=== PATIENT | female | born 2000 ===

== ENCOUNTER 2021-06-17 11:12 | Emergency (ER) | payer SELFPAY ==
[2021-06-17 11:29] VITALS: BP 114/70
--- NOTE | 2021-06-17 12:35 | Emergency Department Report ---
Abscess Boil HPI - HPI Chief Complaint: Earache Stated Complaint: EAR PAIN Time Seen by Provider: 06/17/21 12:16 Duration: 5 Days Location: Other (Right ear lobe) History: Yes Pain, No Fever, No Purulent Drainage, No Numbness, No Foreign Body, No Previous History, No Insect Bite HPI: 20-year-old female presents to the ER today with complaints of a tender swollen area to her right posterior elbow. She states that started about 5 days ago and has progressively been getting worse. She states that she is unsure of what may have caused it. She denies any drainage from the area. She states that she has never had abscesses before in the past. She denies any fever or chills. She denies any significant past medical history. She reports no additional symptoms at this time Home Medications: Previous Rx's Medication Instructions Recorded Last Taken Type Ibuprofen [Motrin] 600 mg PO Q8H PRN #30 tablet 06/17/21 Unknown Rx Sulfamethoxazole/Trimethoprim 1 each PO BID #14 tablet 06/17/21 Unknown Rx [Bactrim DS TAB] traMADoL [Ultram] 50 mg PO Q6HR PRN #12 tablet 06/17/21 Unknown Rx Allergies/Adverse Reactions: Allergies Allergy/AdvReac Type Severity Reaction Status Date / Time No Known Allergies Allergy Verified 06/17/21 11:26 ED Review of Systems ROS: Stated complaint: EAR PAIN Other details as noted in HPI Comment: All other systems reviewed and negative Skin: other (Swollen, tender area posterior right elbow) ED Past Medical Hx - Past Medical History Previous Medical History?: No - Surgical History Past Surgical History?: No - Medications Home Medications: Home Medications Medication Instructions Recorded Confirmed Last Taken Type Ibuprofen [Motrin] 600 mg PO Q8H PRN #30 tablet 06/17/21 Unknown Rx Sulfamethoxazole/Trimethoprim 1 each PO BID #14 tablet 06/17/21 Unknown Rx [Bactrim DS TAB] traMADoL [Ultram] 50 mg PO Q6HR PRN #12 tablet 06/17/21 Unknown Rx ED Abscess Boil Physical Exam - Exam General: Vital signs noted. No distress. Alert and acting appropriately. Exam: Yes Tenderness, Yes Fluctuance, Yes Normal Neurologic Exam, Yes Normal Circulation, No Surrounding Cellulites/Erythema, No Lymphangitis, No Crepitation, No Heart Murmur Exam: Approximately 2 cm x 1 cm tender swollen indurated fluctuant cystic lesion noted to the posterior aspect of the right earlobe. No significant cellulitis or lymphangitis I & D Note - I & D Note I & D Note: Location: Right posterior earlobe. Anesthesia used: Lidocaine 1. 11 inch blade used to make incision. Large amount of pus drained. Wound irrigated with saline. Dressing applied. Patient tolerated procedure well without any complications ED Course Vital Signs 06/17/21 11:27 Temperature 98.9 F Pulse Rate 91 H Respiratory 16 Rate Blood Pressure 114/70 [Left] O2 Sat by Pulse 99 Oximetry Critical care attestation.: If time is entered above; I have spent that time in minutes in the direct care of this critically ill patient, excluding procedure time. ED Disposition Clinical Impression: Abscess, earlobe Disposition: HOME / SELF CARE / HOMELESS Is pt being admited?: No Does the pt Need Aspirin: No Condition: Stable Instructions: Skin Abscess, Ylse-am-Morc Additional Instructions: Keep the area clean daily with soap and water. Do not use alcohol or peroxide. Do this daily until the area heals. Take the Bactrim as prescribed and to completion. Take the ibuprofen and the tramadol as prescribed for pain. Follow-up closely with your PCP. Return to the ER if your symptoms changes or worsens in any way. Prescriptions: Sulfamethoxazole/Trimethoprim [Bactrim DS TAB] 1 each PO BID #14 tablet Ibuprofen [Motrin] 600 mg PO Q8H PRN #30 tablet PRN Reason: Pain traMADoL [Ultram] 50 mg PO Q6HR PRN #12 tablet PRN Reason: Pain Referrals: [facility] [Provider Group] - 3-5 Days Forms: Work/School Release Form(ED) Time of Disposition: 13:54 Print Language: AMERICAN
[2021-06-17] MEDS ORDERED: LIDOCAINE (1%) 10 MG/1 ML VIAL 20 ML MDV INFILTRATI ONE (12:36)
[2021-06-17] MEDS ORDERED: IBUPROFEN 600 MG TAB PO ONE (12:36)
== END 2021-06-17 14:18 | disposition home or self-care (01) ==
LOC: ED 11:12
DX: H60.01 Abscess of right external ear (principal)
CPT/HCPCS: 99282